=== PATIENT | female | born 2000 | race Caucasian/White ===

== ENCOUNTER 2018-02-23 09:05 | Inpatient (IN) ==
[2018-02-23] MEDS ORDERED: Morphine Inj 4 MG/ML Vial IV.PUSH ONE ×2 (09:25→11:27)
[2018-02-23] MEDS ORDERED: Sod Chloride 0.9% Inj 1,000 ML IV.SIG ONE (09:25)
[2018-02-23] MEDS ORDERED: Piperacil/Tazo 3.375 GM Premix 50 ML IV.SIG ONE (09:30)
--- NOTE | 2018-02-23 09:30 | ED ---
HPI General Chief Complaint: Abdominal Pain Stated Complaint: abd pain Time Seen by Provider: 02/23/18 09:17 Source: family Mode of arrival: ambulatory Limitations: language barrier History of Present Illness MD complaint: Reports abdominal pain Onset (ago): day(s) (1) Pain Consistency: constant Location: Reports RLQ Severity scale (1-10): 10 Radiation: Reports none Relieving factors: nothing Exacerbating factors: other (walking) Context: Reports foreign travel (She is visiting here from [place]) Associated symptoms: Reports nausea and vomiting Related Data Home Medications Medication Instructions Recorded Confirmed No Known Home Medications 02/23/18 02/23/18 Allergies Allergy/AdvReac Type Severity Reaction Status Date / Time No Known Allergies Allergy Verified 02/23/18 09:14 Review of Systems ROS: all other systems reviewed are negative [facility] Medical History Medical History Patient denies medical problems (Acute) Surgical History Surgical History Hx of umbilical hernia repair (Acute) Social History Social History Substance History: No History of Abuse Smoking Status: Never smoker How Often Do You Have a Drink Containing Alcohol: Never Immunization History Tetanus Immunization: Unsure Exam Const General: cooperative, healthy appearing, comfortable, no acute distress, well developed and well groomed Orientation: alert, awake and oriented x3 HENMT Head: normal to inspection, normocephalic and atraumatic Mouth: moist mucous membranes Eyes Conjunctivae: conjunctivae normal Sclera: sclerae normal EOM: EOM intact bilaterally Neck Neck: normal visual inspection and full ROM Chest Chest: normal inspection of the chest Resp Effort & Inspection: normal respiratory effort and able to speak in complete sentences Auscultation: clear to auscultation bilaterally Cardio Rate: regular rate Rhythm: regular rhythm GI Inspection: normal to inspection Palpation: soft and tender in the RLQ Auscultation: hypoactive bowel sounds Back/Spine/Pelvis Cervical Spine: cervical ROM normal Thoracic/Lumbar Spine: thoraco-lumbar ROM normal Skin General: no rashes or lesions noted and turgor normal Neuro General: alert, awake, oriented x3, moves all extremities and CN's II-XI intact bilaterally Extrem General: normal to inspection and full ROM Psych Appearance: grossly normal Mental Status: mental status grossly normal Speech and Movement: speech and movement normal Mood: congruent mood Affect: normal affect Attitude: cooperative Thought Process: normal Thought Content: normal Judgment: judgment good Course Consultations Consultation #1: Dr. Pendleton will operate. He is also on trauma call so the patient will have to be sent to [facility] [place]. Time: 10:59 Initial Documented Vital Signs Temperature 97.5 F L 02/23/18 09:11 Pulse Rate 71 02/23/18 09:11 Respiratory Rate 20 02/23/18 09:11 Blood Pressure 117/73 02/23/18 09:11 Pulse Oximetry 96 02/23/18 09:11 Last Documented Vital Signs Temperature 97.5 F L 02/23/18 09:11 Pulse Rate 70 02/23/18 10:34 Respiratory Rate 18 02/23/18 10:34 Blood Pressure 118/70 02/23/18 10:34 Pulse Oximetry 98 02/23/18 10:34 Medical Decision Making MDM Narrative Medical decision making narrative: This is a healthy young lady who presents with a 1 day history of abdominal pain. The pain was followed by nausea and vomiting. The pain is now localized to the right lower quadrant. On exam, her bowel sounds are very quiet and her abdomen is soft with tenderness in the right lower quadrant. She most likely has appendicitis. An IV has been started. Basic labs have been ordered. CT of the abdomen and pelvis has been ordered. She will be treated empirically with Zosyn. Medical Screen Exam Complete: Yes Emergency Medical Condition: Yes Lab Data Lab results reviewed: Yes I reviewed the patient's lab results. Result diagrams: 02/23/18 09:30 02/23/18 09:30 POC Results POC Urine Results Negative POC Urine Results Negative Lab Results 02/23/18 02/23/18 02/23/18 Range/Units 09:25 09:30 09:30 CBC w Diff Auto diff final WBC 14.8 H (4.0-11.0) th/mm3 RBC 5.13 (4.00-5.30) mil/mm3 Hgb 14.3 (11.6-15.3) gm/dL Hct 42.7 (35.0-46.0) % MCV 83.2 (80.0-100.0) fL MCH 27.8 (27.0-34.0) pg MCHC 33.4 (32.0-36.0) % RDW 12.1 (11.6-17.2) % Plt Count 173 (150-450) th/mm3 MPV 8.9 (7.0-11.0) fL Neut % (Auto) 92.8 H (16.0-70.0) % Lymph % (Auto) 3.5 L (9.0-44.0) % [place] % (Auto) 3.3 (0.0-8.0) % Eos % (Auto) 0.0 (0.0-4.0) % Baso % (Auto) 0.4 (0.0-2.0) % Neut # (Auto) 13.7 H (1.8-7.7) th/mm3 Lymph # (Auto) 0.5 L (1.0-4.8) th/mm3 [place] # (Auto) 0.5 (0.0-0.9) th/mm3 Eos # (Auto) 0.0 (0.0-0.4) th/mm3 Baso # (Auto) 0.1 (0.0-0.2) th/mm3 WBC Differential . Differential Comment . Sodium 136 (136-145) meq/L Potassium 3.6 (3.5-5.1) meq/L Chloride 101 (98-107) meq/L Carbon Dioxide 23.5 (21.0-32.0) meq/L Anion Gap 12 (5-15) meq/L BUN 12 (7-18) mg/dL Creatinine 0.72 (0.50-1.00) mg/dL Estimated GFR Greater than 89 (>89) mL/min Random Glucose 147 H (74-106) mg/dL Calcium 8.5 (8.5-10.1) mg/dL Ur Collection Type Clean catch Urine Color Yellow (Yellw/Straw) Urine Clarity Slightly cloudy (Clear) Urine pH 6.0 (5.0-8.5) Ur Specific [place] Greater/equal 1.030 (1.002-1.035) Urine Protein Trace (Neg-Trace) mg/dL Urine Glucose (UA) Negative (Negative) mg/dL Urine Ketones 40 H (Negative) mg/dL Urine Occult Blood Trace (Negative) Urine Nitrate Negative (Negative) Urine Bilirubin Negative (Negative) Urine Urobilinogen 0.2 (Less than 2) mg/dL Ur Leukocyte Esterase Negative (Negative) Ur Squamous Epith Cells Greater than 10 H (0-5) /hpf Ur Transition Epith Cell 1-5 H (None) /hpf Amorphous Sediment Many H (None) /hpf Urine Mucus Moderate H (Occasional) /lpf Micro UA Comment Culture not ind Ur Microscopic Review Microscopic reviewed Urine Culture Comments Culture not ind Urine Collection Time 925 hours Imaging Data Radiologist's impression: Abdomen/Pelvis CT 02/23/18 09:25 CONCLUSION: 1. Abnormal enlargement and inflammatory change with wall thickening involving the appendix consistent with acute appendicitis. Adjacent mesenteric fat stranding. No evidence of fracture or free air. No evidence of abscess. 2. Dominant follicle identified within the right ovary. Discharge Plan Discharge Disposition Patient Disposition: 30 Still Patient Discharge Details Diagnosis: Acute appendicitis Physicians Team ED Provider: Rashmi Rose Primary Care Provider: Primary Care Kayla Olivares Attending Provider: Nichelle Shepherd Status ED Status: Left Department Discharge Information Discharge Date/Time: 02/23/18 11:50
[2018-02-23 09:34] LABS: Bilirubin,Urine Negative (Negative); Clarity,Urine Slightly Cloudy (Clear); Color,Urine Yellow (Yellw/Straw); Glucose,Urine (UA) Negative (Negative); Leukocyte Esterase,Urine Negative (Negative); Nitrite,Urine Negative (Negative); Specific Gravity,Urine Greater/Equal 1.030 (1.002-1.035); Urobilinogen,Urine 0.2 mg/dL (Less than 2)
[2018-02-23 09:37] LABS: Baso # (Auto) 0.1 th/mm3 (0.0-0.2); Baso % (Auto) 0.4 % (0.0-2.0); Hematocrit 42.7 % (35.0-46.0); Hemoglobin 14.3 gm/dL (11.6-15.3); Lymph # (Auto) 0.5 th/mm3 (1.0-4.8); Lymph % (Auto) 3.5 % (9.0-44.0); Mean Corpuscular HGB Conc 33.4 % (32.0-36.0); Mean Corpuscular Hemoglobin 27.8 pg (27.0-34.0); Mean Corpuscular Volume 83.2 fL (80.0-100.0); Mean Platelet Volume 8.9 fL (7.0-11.0); Mono # (Auto) 0.5 th/mm3 (0.0-0.9); Mono % (Auto) 3.3 % (0.0-8.0); Neut # (Auto) 13.7 th/mm3 (1.8-7.7); Neut % (Auto) 92.8 % (16.0-70.0); Platelet Count 173 th/mm3 (150-450); Red Blood Count 5.13 mil/mm3 (4.00-5.30); Red Cell Distribution Width 12.1 % (11.6-17.2); White Blood Count 14.8 th/mm3 (4.0-11.0)
[2018-02-23 09:44] LABS: Collection Time,Urine 925 hours
[2018-02-23 09:45] LABS: Amorphous Sediment,Urine Many /hpf; Mucus,Urine Moderate /lpf (Occasional); Squamous Epithelial Cell,Urine Greater than 10 /hpf (0-5)
[2018-02-23 09:46] LABS: Calcium 8.5 mg/dL (8.5-10.1)
[2018-02-23 09:47] LABS: Carbon Dioxide 23.5 meq/L (21.0-32.0); Glucose,Random 147 mg/dL (74-106)
[2018-02-23 09:50] LABS: Glomerular Filtration Rate Greater Than 89 mL/min (>89)
[2018-02-23 09:54] LABS: Anion Gap 12 meq/L (5-15); Chloride 101 meq/L (98-107); Potassium 3.6 meq/L (3.5-5.1); Sodium 136 meq/L (136-145)
[2018-02-23 09:58] LABS: Blood Urea Nitrogen 12 mg/dL (7-18)
--- NOTE | 2018-02-23 10:47 | CT ---
EXAM DATE: 02/23/2018 10:10 AM EST AGE/SEX: 17 years / Female INDICATIONS: Right lower abdomen pain, nausea, vomiting CLINICAL DATA: This is the patient's initial encounter. Patient reports that signs and symptoms have been present for 1 day and indicates a pain score of 10/10. MEDICAL/SURGICAL HISTORY: None. Umbilical hernia repair. ORAL CONTRAST: No oral contrast ingested. RADIATION DOSE: 8.88 CTDI (mGy) COMPARISON: No prior exams available for comparison. TECHNIQUE: Multiple contiguous axial images were obtained through the abdomen and pelvis following b olus infusion of 96ML ml Omnipaque 350 (iohexol) nonionic water-soluble contrast as a single exam d ose. No oral contrast ingested. Using automated exposure control and adjustment of the mA and/or kV according to patient size, radiation dose was kept as low as reasonably achievable to obtain optimal diagnostic quality images. DICOM format image data is available electronically for review and compar louis. FINDINGS: Lower Lungs: The visualized lower lungs are clear. Liver: The liver has a homogeneous density without space-occupying lesion. There is no dilation of th e biliary tree. Spleen: Homogeneous density without enlargement. Pancreas: Unremarkable without mass or calcification. Kidneys: Normal in size and shape. No evidence of mass or hydronephrosis. Adrenal Glands: Unremarkable. Aorta: The aorta and proximal iliac vessels are grossly unremarkable without aneurysmal dilation. Bowel/Mesentery: There is extensive inflammatory change and wall thickening of the appendix which ex tends superiorly within the right lower quadrant with the overall measurement of 1.5 cm. Extensive in flammatory change is noted within the adjacent soft tissues. The small and large bowel are unremarkab le with the exception of the appendix. Abdominal Wall: Intact. Retroperitoneum: No evidence of adenopathy in the retrocrural, para-aortic, or deep pelvic regions. Bladder: Contours are smooth. Reproductive Organs: There are multiple follicles seen within the left ovary and there is a large do minant follicle identified within the right ovary. Uterus is unremarkable. Inguinal: The inguinal region is unremarkable without evidence of adenopathy. Bony Structures: Unremarkable. CONCLUSION: 1. Abnormal enlargement and inflammatory change with wall thickening involving the appendix consiste nt with acute appendicitis. Adjacent mesenteric fat stranding. No evidence of fracture or free air. N o evidence of abscess. 2. Dominant follicle identified within the right ovary. Electronically signed by: Nevin Amezcua MD 02/23/2018 10:46 AM EST
[2018-02-23] MEDS ORDERED: Morphine Sulfate Inj 2 MG/ML Vial IV.PUSH PRN (13:58)
[2018-02-23] MEDS ORDERED: Piperacil/Tazo 3.375 GM Premix 50 ML IV.SIG SCH (14:00)
[2018-02-23] MEDS ORDERED: Sod Chloride 0.9% Inj 1,000 ML IV.SIG SCH (14:00)
[2018-02-23] MEDS ORDERED: Chlorhexidine Gluconate 2% 1 Pack (2 Cloths) TOPICAL ONE (16:07)
[2018-02-23] MEDS ORDERED: Metoprolol Tartrate 25 MG Tablet PO ONE (16:07)
[2018-02-23] MEDS ORDERED: fentaNYL Citrate Inj 250 MCG/5 ML Ampul ONE (16:13)
[2018-02-23] MEDS ORDERED: Sugammadex Inj 200 MG/2 ML Vial IV.PUSH ONE (16:14)
[2018-02-23] MEDS ORDERED: Bupivacaine/Epinephrine Inj 0.25% 50 ML Vial ONE (16:41)
[2018-02-23] MEDS ORDERED: Sodium Chlor 0.9% Inj 500 ML IV.SIG SCH (17:00)
[2018-02-23] MEDS ORDERED: Naloxone Inj 0.4 MG/ML Vial IV.PUSH PRN (18:23)
[2018-02-23] MEDS ORDERED: Post-op Orders (for Pharmacy) OTHER ONE (18:23)
[2018-02-23] MEDS ORDERED: Morphine Inj 4 MG/ML Vial IV.PUSH PRN (18:23)
[2018-02-23] MEDS ORDERED: *morphine SULFATE 4 MG/ML PERIprocedure ONLY ONE (19:00)
--- NOTE | 2018-02-23 19:04 | MH ---
cc: iNchelle Shepherd MD DATE OF ADMISSION: 02/23/2018 ADMITTING PHYSICIAN: Nichelle Shepherd MD DIAGNOSIS: Acute appendicitis. HISTORY OF PRESENT ILLNESS: This is a 17-year-old female who is visiting from [place]. Her family started complaining yesterday about abdominal pain, which became progressively worse. The patient was seen in the ER and diagnostic workup revealed acute appendicitis. The patient is admitted now for appendectomy. PAST MEDICAL AND SURGICAL HISTORY: Negative. MEDICATIONS: Negative. ALLERGIES: NEGATIVE. FAMILY HISTORY: Noncontributory. PHYSICAL EXAMINATION: GENERAL: Reveals 17-year-old female. HEENT: Normocephalic. No trauma to the head. Pupils equal, reactive. Extraocular muscles intact. NECK: Supple. Bilateral carotid pulses. LUNGS: Bilateral breath sounds. HEART: Regular rate and rhythm. ABDOMEN: Soft. Hypoactive bowel sounds on palpation. Quite tender in the right lower quadrant. There is referred tenderness from the left side and the patient is developing peritoneal signs with guarding and rebound in both lower quadrants, right more than left. EXTREMITIES: Within normal limits. BACK: Normal. IMPRESSION: The patient with acute advanced appendicitis, probably gangrenous or near perforation for surgery within the next hour or two. Nichelle Shepherd MD SJ/sv , 06:45 PM , 06:51 PM
--- NOTE | 2018-02-23 19:14 | MP ---
cc: Nichelle Shepherd MD DATE OF OPERATION: 02/23/2018 PREOPERATIVE DIAGNOSIS: Acute appendicitis. POSTOPERATIVE DIAGNOSIS: Acute gangrenous purulent appendicitis. OPERATIVE PROCEDURE: Laparoscopic appendectomy. SURGEON: Nichelle Shepherd MD ANESTHESIA: General. ESTIMATED BLOOD LOSS: 20 mL. DESCRIPTION OF PROCEDURE: The patient prepped and draped in usual fashion. Supraumbilical incision was made, deepened down to level of the fascia. The fascia opened under direct vision. Tarik cannula placed. Abdomen insufflated with CO2 and the patient positioned in Trendelenburg with a left tilt. Abdomen explored in quadrants. Everything else is normal except the patient in the right lower quadrant has a large phlegmonous area, which is kind of stuck to the cecum. The 5 mm suprapubic and 12 mm left lower quadrant ports were placed and then 30-degree camera was placed to visualize the entire abdomen. Above noted is ascertained and then the appendix is teased off of the surface of the cecum and very carefully elevated with some blunt dissection. It was freed up from the purulent fibrinous adhesions and then grasped with a [place] grasper, elevated. Mesoappendix was carefully stripped from additional tissue and then opening made in the mesoappendix at the base of the appendix. Endo-ELLEN with vascular load was fired first over the mesoappendix and then across the appendix and then the appendix was placed in an EndoCatch bag and delivered through the subumbilical incision. Area irrigated with copious amounts of saline. Meticulous hemostasis obtained. Instruments withdrawn. Incision was closed with 2-0 Vicryl and Monocryl. The patient tolerated the procedure well. Nichelle Shepherd MD SJ/sv , 06:48 PM , 06:54 PM
[2018-02-23] MEDS: Piperacil/Tazo 3.375 GM Premix 50 ML IV.SIG SCH (20:13)
[2018-02-23] MEDS: Sodium Chloride 0.9% 2 ML Flush BID IV.FLUSH SCH (20:17)
[2018-02-23] MEDS: Famotidine 20 MG Tablet PO SCH (20:43)
[2018-02-23] MEDS: Morphine Inj 4 MG/ML Vial IV.PUSH PRN (23:03)
[2018-02-24] MEDS: Piperacil/Tazo 3.375 GM Premix 50 ML IV.SIG SCH ×4 (04:35→21:41)
[2018-02-24] MEDS: Morphine Inj 4 MG/ML Vial IV.PUSH PRN ×3 (04:55→13:15)
[2018-02-24 09:01] LABS: Baso % (Auto) 0.1 % (0.0-2.0); Hematocrit 36.4 % (35.0-46.0); Hemoglobin 12.4 gm/dL (11.6-15.3); Lymph # (Auto) 0.5 th/mm3 (1.0-4.8); Mean Corpuscular Volume 82.4 fL (80.0-100.0); Mean Platelet Volume 9.2 fL (7.0-11.0); Mono # (Auto) 0.6 th/mm3 (0.0-0.9); Mono % (Auto) 5.7 % (0.0-8.0); Neut # (Auto) 9.8 th/mm3 (1.8-7.7); Neut % (Auto) 89.2 % (16.0-70.0); Platelet Count 120 th/mm3 (150-450); Red Blood Count 4.42 mil/mm3 (4.00-5.30); Red Cell Distribution Width 13.6 % (11.6-17.2)
[2018-02-24] MEDS: Famotidine 20 MG Tablet PO SCH ×2 (09:02→21:42)
[2018-02-24] MEDS: Sodium Chloride 0.9% 2 ML Flush BID IV.FLUSH SCH ×2 (09:11→21:48)
[2018-02-24 09:27] LABS: Anion Gap 7 meq/L (5-15); Blood Urea Nitrogen 4 mg/dL (7-18); Carbon Dioxide 27.4 meq/L (21.0-32.0); Chloride 103 meq/L (98-107); Glomerular Filtration Rate Greater Than 89 mL/min (>89); Glucose,Random 113 mg/dL (74-106); Potassium 3.5 meq/L (3.5-5.1); Sodium 137 meq/L (136-145)
--- NOTE | 2018-02-24 14:52 | P.PNVS ---
Subjective Subjective/Hospital Course: 17-year-old female status post appendectomy Port sites clean and dry Abdomen soft active bowel sounds Patient tolerating diet but still in pain and very low threshold for pain refuses to go home We will keep patient in hospital for another day Objective Vital Signs / I&O: Vital Signs 02/23/18 16:00 02/23/18 18:45 02/23/18 19:00 Temperature 99.9 F H 98.2 F Pulse Rate 112 H 93 H 91 H Respiratory Rate 18 20 22 Blood Pressure 108/59 L 110/68 111/67 Pulse Oximetry 93 L 100 97 02/23/18 19:15 02/23/18 19:50 02/23/18 20:00 Temperature 98.4 F 98.1 F 97.1 F L Pulse Rate 92 H 95 H 88 Respiratory Rate 18 16 20 Blood Pressure 110/58 L 112/60 94/52 L Pulse Oximetry 97 94 L 98 02/24/18 00:00 02/24/18 04:00 02/24/18 08:00 Temperature 97.8 F 98.0 F 99.2 F Pulse Rate 81 92 H 85 Respiratory Rate 20 20 16 Blood Pressure 106/58 L 105/56 L 96/50 L Pulse Oximetry 98 96 97 02/24/18 12:00 Temperature 98.5 F Pulse Rate 90 Respiratory Rate 16 Blood Pressure 107/53 L Pulse Oximetry 98 Intake & Output 02/23/18 02/24/18 02/24/18 18:59 06:59 18:59 Intake Total 2500 / 2500 780 / 780 1050 / 1050 Output Total 10 10 1500 / 1500 Balance 2490 / 2490 -720 / -720 1050 / 1050 Weight 78.8 kg Intake: IV 1100 / 1100 300 / 300 1050 / 1050 LR 1000 mL Inj 1,000 ML @ 84 1000 / 1000 mls/hr IV.CONT .[id number] FERNANDO Rx# :[id number] Zosyn 3.375 GM Premix 50 ML @ 100 / 100 100 / 100 50 / 50 100 mls/hr IV.SIG Q6H FERNANDO Rx#: [id number] NS Inj 1,000 ML @ 100 mls/hr IV 1000 / 1000 200 / 200 .SIG .Q10H FERNANDO Rx#:[id number] Oral 480 / 480 Anesthesia Amount 1400 / 1400 Output: Urine 1500 / 1500 Estimated Blood Loss 10 Laboratory Results - last 24 hr 02/24/18 02/24/18 08:27 08:27 WBC 11.0 RBC 4.42 Hgb 12.4 Hct 36.4 MCV 82.4 MCH 28.0 MCHC 34.0 RDW 13.6 Plt Count 120 L D MPV 9.2 Neut % (Auto) 89.2 H Lymph % (Auto) 5.0 L [place] % (Auto) 5.7 Eos % (Auto) 0.0 Baso % (Auto) 0.1 Neut # (Auto) 9.8 H Lymph # (Auto) 0.5 L [place] # (Auto) 0.6 Eos # (Auto) 0.0 Baso # (Auto) 0.0 WBC Differential . Differential Comment Auto diff final Sodium 137 Potassium 3.5 Chloride 103 Carbon Dioxide 27.4 Anion Gap 7 BUN 4 L Creatinine 0.69 Estimated GFR Greater than 89 Random Glucose 113 H Calcium 8.0 L Impressions Abdomen/Pelvis CT 02/23/18 09:25 CONCLUSION: 1. Abnormal enlargement and inflammatory change with wall thickening involving the appendix consistent with acute appendicitis. Adjacent mesenteric fat stranding. No evidence of fracture or free air. No evidence of abscess. 2. Dominant follicle identified within the right ovary.
[2018-02-24] MEDS: Ketorolac Inj 30 MG/ML (IVP) Vial IV.PUSH SCH ×2 (15:52→21:42)
[2018-02-24] MEDS ORDERED: Ketorolac 10 MG Tablet PO SCH (18:00)
[2018-02-24] MEDS: Enoxaparin Inj 40 MG/0.4 ML Syringe SQ SCH (18:01)
[2018-02-24 23:03] VITALS: RESP 20
[2018-02-25] MEDS: Piperacil/Tazo 3.375 GM Premix 50 ML IV.SIG SCH ×3 (03:15→14:22)
[2018-02-25] MEDS: Ketorolac Inj 30 MG/ML (IVP) Vial IV.PUSH SCH ×2 (03:16→08:22)
[2018-02-25] MEDS: Famotidine 20 MG Tablet PO SCH (08:23)
[2018-02-25] MEDS: Sodium Chloride 0.9% 2 ML Flush BID IV.FLUSH SCH (08:24)
[2018-02-25] MEDS: Enoxaparin Inj 40 MG/0.4 ML Syringe SQ SCH (08:24)
[2018-02-25 12:50] VITALS: O2SAT 98
[2018-02-25] MEDS ORDERED: Docusate Sodium 100 MG Capsule PO SCH (13:00)
[2018-02-25 13:45] LABS: Baso % (Auto) 0.3 % (0.0-2.0); Eos % (Auto) 0.2 % (0.0-4.0); Hematocrit 35.5 % (35.0-46.0); Lymph # (Auto) 0.7 th/mm3 (1.0-4.8); Lymph % (Auto) 7.3 % (9.0-44.0); Mean Corpuscular HGB Conc 33.8 % (32.0-36.0); Mean Corpuscular Hemoglobin 28.4 pg (27.0-34.0); Mean Corpuscular Volume 84.1 fL (80.0-100.0); Mean Platelet Volume 8.9 fL (7.0-11.0); Mono # (Auto) 0.6 th/mm3 (0.0-0.9); Mono % (Auto) 6.4 % (0.0-8.0); Neut # (Auto) 8.1 th/mm3 (1.8-7.7); Neut % (Auto) 85.8 % (16.0-70.0); Platelet Count 136 th/mm3 (150-450); Red Blood Count 4.22 mil/mm3 (4.00-5.30); Red Cell Distribution Width 13.6 % (11.6-17.2); White Blood Count 9.4 th/mm3 (4.0-11.0)
--- NOTE | 2018-02-25 15:03 | P.PNVS ---
Subjective Subjective/Hospital Course: 17-year-old female status post appendectomy Port sites clean and dry Abdomen soft active bowel sounds Patient tolerating diet but still in pain and very low threshold for pain refuses to go home We will keep patient in hospital for another day 02/25/2019 Abdomen soft active bowel sounds Incisions clean and dry Bilateral breath sounds decreased over the both bases patient is developing atelectasis and hence the fever Patient is refusing to get out of bed and walk he is moaning but I thrive explained to her that she needs to mobilize walk ambulate and get active otherwise she will get pneumonia patient understands and will get out of bed White count is normal Patient can be discharged at this time and there is no reason for further hospitalization Objective Vital Signs / I&O: Vital Signs 02/24/18 16:00 02/24/18 16:30 02/24/18 20:00 Temperature 99 F 99.5 F Pulse Rate 102 H 90 Respiratory Rate 16 5 L 20 Blood Pressure 102/55 L 100/53 L Pulse Oximetry 94 L 96 02/25/18 00:00 02/25/18 04:00 02/25/18 08:00 Temperature 98.7 F 98.5 F 101.1 F H Pulse Rate 85 88 95 H Respiratory Rate 20 20 20 Blood Pressure 104/62 104/60 120/70 Pulse Oximetry 98 100 97 02/25/18 12:00 Temperature 98.9 F Pulse Rate 87 Respiratory Rate 20 Blood Pressure 120/87 Pulse Oximetry 98 Intake & Output 02/24/18 02/25/18 02/25/18 18:59 06:59 18:59 Intake Total 2059 100 / 100 1050 / 1050 Balance 2059 100 / 100 1050 / 1050 Weight 78.8 kg Intake: IV 1100 / 1100 100 / 100 1050 / 1050 LR 1000 mL Inj 1,000 ML @ 84 1000 / 1000 mls/hr IV.CONT .[id number] FERNANDO Rx# :[id number] Zosyn 3.375 GM Premix 50 ML @ 100 / 100 100 / 100 50 / 50 100 mls/hr IV.SIG Q6H FERNANDO Rx#: [id number] Oral 960 / 960 Other: # Voids 7 2 2 # Bowel Movements 0 Laboratory Results - last 24 hr 02/25/18 13:18 WBC 9.4 RBC 4.22 Hgb 12.0 Hct 35.5 MCV 84.1 MCH 28.4 MCHC 33.8 RDW 13.6 Plt Count 136 L MPV 8.9 Neut % (Auto) 85.8 H Lymph % (Auto) 7.3 L [place] % (Auto) 6.4 Eos % (Auto) 0.2 Baso % (Auto) 0.3 Neut # (Auto) 8.1 H Lymph # (Auto) 0.7 L [place] # (Auto) 0.6 Eos # (Auto) 0.0 Baso # (Auto) 0.0 WBC Differential . Differential Comment Auto diff final
[2018-02-25 16:47] VITALS: BP 109/57; PULSE 88; TEMP 98
== END 2018-02-25 18:23 | disposition home or self-care (01) ==
LOC: PHED 09:05 → PHEDA 09:05 → N05 13:19
PROVIDERS: ADMIT Surgery; ATTEND Surgery
PROC: LAPAPPY (ICD-10-PCS; 2018-02-23 16:45)
CPT/HCPCS: 74177; 80048; 81001; 84703; 85025; 88304; J0131; J1650; J1885; J2250; J2270; J2405; J2543; J3010; J7030; J7040; J7120; Q9967